=== PATIENT | female | born 1955 | race Caucasian/White ===

== ENCOUNTER → 2022-05-29 07:59 | Outpatient (CLI) | payer OTHER, SELFPAY ==
--- NOTE | 2022-05-29 08:03 | DI.MRI.S_ITS ---
PROCEDURE: MR LUMBAR SPINE WO CON INDICATIONS: EVAL FOR STENOSIS W/LEFT LEG SYMPTOMS TECHNIQUE: Noncontrast sagittal T1 spin echo and T2 fast echo, sagittal STIR, and T2 fast spin echo through the lumbar spine. In cases with scoliosis, additional coronal T2 fast spin echo may be performed. COMPARISON: [facility], CR, XR LUMBAR SPINE 2 OR 3 VIEWS, 05/13/2022, 8:56. FINDINGS: Image quality: Excellent. Alignment and Curvature: There is mild straightening of the normal lumbar lordosis. No focal AP alignment abnormality is seen. Bone Marrow: Marrow is of normal overall signal. No acute vertebral body compression fractures. Spinal Cord: Conus medullaris terminates at the L1 level. Visualized cord demonstrates normal signal and size. Paraspinous Soft Tissues: No paravertebral masses. T12-L1: Normal appearance. L1-L2: Normal appearance. L2-L3: Normal appearance. L3-L4: The disc height is well-preserved. Loss of disc signal is seen at this level. Mild to moderate disc bulge seen, which is eccentric to the right. There is a superimposed central disc protrusion. Mild facet joint hypertrophy is seen. There is minimal to mild right-sided and left-sided neural narrowing. Moderate central canal narrowing is seen. L4-L5: The disc height is well-preserved. Loss of disc signal is seen at this level. Moderate generalized disc bulge is seen. There is a superimposed central disc protrusion. Mild facet joint hypertrophy is seen. There is [id number] left-sided and moderate right-sided neural narrowing. Moderate central canal narrowing is seen. L5-S1: The disc height and disc signal are relatively well preserved. Mild to moderate disc bulge is seen, which is eccentric to the right. Mild facet joint hypertrophy is seen. There is moderate right-sided and [id number] left-sided neural foraminal narrowing. Minimal central canal narrowing is seen. 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 IMPRESSION: Lower lumbar spine degenerative changes are seen. Dictated by: Janes Mackey M.D. on 05/31/2022 at 8:21 Approved by: Janes Mackey M.D. on 05/31/2022 at 8:24
== END ==
PROVIDERS: Referring Provider Orthopaedic Surgery; Visit Provider Orthopaedic Surgery
DX: M54.50 Low back pain, unspecified (principal); M47.816 Spondylosis without myelopathy or radiculopathy, lumbar region
CPT/HCPCS: 72148